=== PATIENT | male | born 1965 | race Caucasian/White ===

== ENCOUNTER 2022-06-19 16:14 | Emergency (ER) | payer BC, OTHER ==
[2022-06-19] MEDS ORDERED: Morphine 10 MG/ML VIAL ONE (16:47)
[2022-06-19] MEDS ORDERED: predniSONE 20 MG TAB ONE (16:48)
[2022-06-19] MEDS ORDERED: Ibuprofen 200 MG TAB ONE (16:48)
== END 2022-06-19 16:57 | disposition home or self-care (01) ==
LOC: BURERS 16:14
DX: M54.12 Radiculopathy, cervical region (principal); E11.9 Type 2 diabetes mellitus without complications; E05.90 Thyrotoxicosis, unspecified without thyrotoxic crisis or storm; E78.00 Pure hypercholesterolemia, unspecified; I10 Essential (primary) hypertension; Z79.899 Other long term (current) drug therapy; Z79.84 Long term (current) use of oral hypoglycemic drugs
CPT/HCPCS: 96372; 99283; J2270; J7512

== ENCOUNTER 2023-08-05 21:45 | Emergency (ER) | payer BC | END 2023-08-06 00:36 | disposition home or self-care (01) | LOC: BURERS 21:45 | DX: T16.1XXA Foreign body in right ear, initial encounter (principal); E11.9 Type 2 diabetes mellitus without complications; I10 Essential (primary) hypertension | CPT/HCPCS: 69200; 99282 ==